=== PATIENT | male | born 1985 | race Caucasian/White ===

== ENCOUNTER 2019-12-08 15:32 | Emergency (ER) | payer SELFPAY ==
[~2019-12-08] VITALS: Ht 182.9 cm; Wt 95.3 kg
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
[2019-12-08] MEDS ORDERED: SILVER SULFADIAZINE 1% CREAM 25 GM TUBE TP ONE (15:57)
[2019-12-08] MEDS ORDERED: SILVER SULFADIAZINE 1% CREAM 50 GM TP ONE (16:00)
--- NOTE | 2019-12-08 16:11 | NUR ---
Patient discharged to home in stable conditon. Written and verbal after care instructions given. Patient verbalizes understanding of instructions.
[2019-12-08 16:12] VITALS: BP 121/71
== END 2019-12-08 16:12 | disposition home or self-care (01) ==
LOC: ER 15:32
DX: T22.111A Burn of first degree of right forearm, initial encounter (principal); X08.8XXA Exposure to other specified smoke, fire and flames, initial encounter; Y93.89 Activity, other specified; Y92.89 Other specified places as the place of occurrence of the external cause; Y99.8 Other external cause status
CPT/HCPCS: 16020; A4663